=== PATIENT | male | born 1995 | race Caucasian/White ===

== ENCOUNTER 2023-12-24 06:13 | Emergency (ER) | payer OTHER, SELFPAY ==
[2023-12-24] VITALS (7 sets, daily range): BP systolic 92–131; BP diastolic 56–81; BMI 17.8
[2023-12-24 06:42] LABS: % Basophils 0.3 % (0-2); % Eosinophils 3.1 % (0-6); % Immature Granulocytes 0.3 % (0-0.5); % Lymphocytes 36.4 % (20.5-51.1); % Monocytes 6.7 % (1.7-9.3); % Neutrophils 53.2 % (42.2-75.2); Absolute Eosinophils 0.3 10^3/uL (0-0.7); Absolute Lymphocytes 3.8 10^3/uL (1.2-3.4); Absolute Monocytes 0.7 10^3/uL (0.1-0.6); Absolute Neutrophils 5.5 10^3/uL (1.4-6.5); Hematocrit 42.8 % (39.0-52.0); Mean Corp Hgb Conc. 37.4 g/dL (33.0-37.0); Mean Corpuscular Hgb 29.4 pg (27.0-31.0); Mean Corpuscular Volume 78.5 fL (80.0-94.0); Mean Platelet Volume 8.9 fL (7.4-10.4); Nucleated Red Blood Cells % 0 % (-); Platelet Count 364 10^3/uL (130-400); Red Blood Cell Count 5.45 10^6/uL (4.70-6.10); Red Cell Dist. Width 13.3 % (11.5-14.5); White Blood Cell Count 10.3 10^3/uL (4.8-10.8)
[2023-12-24] MEDS: ZOFRAN 4 MG IV (06:53)
[2023-12-24 07:01] LABS: ALT (SGPT) 18 U/L (0-50); AST (SGOT) 24 U/L (17-59); Albumin 5.1 g/dl (3.5-5.0); Alkaline Phosphatase 93 U/L (38-126); Blood Urea Nitrogen 9 mg/dl (9-20); Calcium 10.4 mg/dl (8.4-10.2); Carbon Dioxide 20 mmol/L (22-30); Chloride 101 mmol/L (98-107); Estimated Creatinine Clearance > 125 ml/min; Glucose 178 mg/dl (70-99); Lipase 72 U/L (23-300); Potassium 3.2 mmol/L (3.5-5.1); Sodium 140 mmol/L (135-145); Total Bilirubin 0.8 mg/dl (0.2-1.3); Total Protein 7.1 g/dl (6.3-8.2); eGFR > 60.00
[2023-12-24] MEDS: NSS 1000 IV ×2 (07:03→10:44)
[2023-12-24 07:04] LABS: Troponin I < 0.012 ng/ml
[2023-12-24] MEDS: PROTONIX IV 40 MG IV (07:09)
[2023-12-24] MEDS: MORPHINE SULFATE 4 MG IV (07:10)
--- NOTE | 2023-12-24 07:46 | ED.GENMED ---
History of Present Illness
General
Chief Complaint: Abdominal Symptoms
Source: patient
Exam Limitations: none
Time Seen by Provider: 12/24/23 06:30
Nursing documentation reviewed up to this point in time: agreed with
History of Present Illness
History of Present Illness:
27-year-old male with past medical history of 'chronic nausea' who presents to the emergency department for evaluation of nausea and vomiting, abdominal pain. Patient reports symptoms started early this morning with profuse nausea and vomiting and
they have been persistent since that time. He says that he asked his brother to bring him to the emergency room and while they were driving to the ER patient began to feel significant abdominal pain and tingling in the extremities, lightheadedness
and so they pulled the car over and called EMS to bring him into the hospital. He also reports 'explosive diarrhea' that started this morning. Denies any recent fevers or chills, says that he was in his normal state of health yesterday. He says
he had a similar episode a few months ago for which he was hospitalized but he says no clear etiology identified. He does note that he uses medical marijuana but 'nausea is not related to that'--he says nausea started long before he began using
medical marijuana.
Past History
Past History
ED Past Medical History: None
ED Past Surgical History: None
Social History
Tobacco: Non-smoker
Alcohol: None
Drug: Marijuana
Personal: Single
Living: with family
Employment: Employed
Review of Systems
Review of Systems
All Other Systems: ROS reviewed and negative except as documented in HPI and ROS
Constitutional: Denies fever or chills
Respiratory: Denies cough or trouble breathing
Cardiac: Denies chest pain
ABD/GI: Reports abdominal pain, nausea, vomiting and diarrhea
: Denies flank pain
Musculoskeletal: Denies neck pain or back pain
Neurological: Reports dizzy; Denies headache
Phy Exam
Physical Exam
Physical Exam:
General: Awake, alert, oriented x3; holding emesis bag, dry heaving
Head: Normocephalic, atraumatic
Eyes: Conjunctiva normal, sclera anicteric
Throat: Airway intact, slightly dry mucous membranes
Neck: Trachea midline, supple without meningismus
Lungs: Clear to auscultation bilaterally, no wheezing, rales, rhonchi
Heart: Regular rate and rhythm, no murmurs, gallops, or rubs
Abd: Soft, non distended, tender to palpation left upper and left lower quadrant with no peritoneal signs and no masses
Neuro: No gross deficits
Extremities: No edema in extremities, equal pulses in all extremities
Scores
Heart Failure Risk
Heart Failure Risk Score: Not Applicable
Heart Score for Chest Pain Patients
STEMI patient?: Not applicable
Withdrawal Assessment of Alcohol
Withdrawal Assessment Completed?: Not applicable
Course
Orders/Labs/Results
Orders:
Orders
12/24/23 06:28
Electrocardiogram (*1) Urgent
Reason for Study: Abdominal Pain
12/24/23 06:31
EKG- Treatment ONCE
12/24/23 06:32
Complete Blood Count/With Diff Urgent
Troponin I Urgent
12/24/23 06:33
Comprehensive Metabolic Panel Urgent
Lipase Urgent
12/24/23 06:47
0.9% Sodium Chloride 1000 ml [Nss] 1,000 ml IV BOLUS
Ondansetron Injectable [Zofran] 4 mg IV NOW STA
12/24/23 07:07
CT Abd/pelvis W Iv Cont Urgent
Comment:
Reason For Exam: abd pain, N/V
Morphine Sulfate 4 mg IV NOW STA
Pantoprazole [Protonix IV] 40 mg IV NOW STA
12/24/23 07:55
Potassium Chloride [KCl] 20 meq 0.9% Sodium Chloride 150 ml [Nss] 150 ml IV NOW
12/24/23 08:31
Lorazepam [Ativan] 1 mg IV NOW STA
12/24/23 10:39
0.9% Sodium Chloride 1000 ml [Nss] 1,000 ml IV BOLUS
12/24/23 10:43
0.9% Sodium Chloride 1000 ml [Nss] 1,000 ml IV BOLUS
Abnormal Lab Results
12/24/23 12/24/23
06:32 06:33
MCV 78.5 L fL
(80.0-94.0)
MCHC 37.4 H g/dL
(33.0-37.0)
Absolute Lymphs (auto) 3.8 H 10^3/uL
(1.2-3.4)
Absolute Monos (auto) 0.7 H 10^3/uL
(0.1-0.6)
Potassium 3.2 L mmol/L
(3.5-5.1)
Carbon Dioxide 20 L mmol/L
(22-30)
Creatinine 0.6 L mg/dL
(0.7-1.3)
Glucose 178 H mg/dl
(70-99)
Calcium 10.4 H mg/dl
(8.4-10.2)
Albumin 5.1 H g/dl
(3.5-5.0)
12/24/23 06:32
12/24/23 06:33
Vital Signs
Initial and Last Documented VS:
Initial Vital Signs
Temp
36.3 C
12/24/23 06:19
Last Documented Vital Signs
Temp Pulse Resp BP Pulse Ox
36.3 C 60 13 131/81 100
12/24/23 06:19 12/24/23 08:30 12/24/23 08:30 12/24/23 07:00 12/24/23 08:30
MDM/Problems Addressed
Differential Diagnosis Includes:
Food poisoning, gastritis/gastroenteritis/viral illness, pancreatitis, cholelithiasis/cholecystitis, bowel obstruction less likely with no abdominal surgeries in his past, cannabinoid hyperemesis
MDM/Problems Addressed:
27-year-old male with history of chronic nausea and vomiting presents with acute nausea and vomiting with dry heaving, diarrhea and abdominal pain this morning. Vitals normal. Exam as above. Plan Place an IV check labs including CBC CMP, lipase.
Check EKG for QTc monitoring. Provide fluids, pain control, antiemetic. Check CT abdomen pelvis. Monitor closely reassess after the above.
Lab reviewed: CBC unremarkable, CMP shows hypokalemia, marginal metabolic acidosis likely GI losses. He had a troponin sent in triage which was undetectable. His lipase is normal. CT of the abdomen pelvis shows no acute pathology. He had some
improvement with Zofran, given borderline QTc we treated with Ativan for antiemetic beyond this and after a dose of Ativan his symptoms completely resolved and he says he feels fine. He still has mild tachycardia will provide another liter of fluid
here as he does appear dry but if he remains asymptomatic can likely be discharged. Symptoms could be from food poisoning versus virus; he insists his symptoms are likely not related to marijuana but I suspect that it could be a complicating factor.
Chronic conditions affecting care:
'Chronic nausea and vomiting'
*Radiology
Radiology exam reviewed: radiology read reviewed
*Pulse Oximetry
Patient hypoxic: no
*EKG
Interpreted by ED Provider?: Yes
Heart Rate: 49
Rate: bradycardiac
Rhythm: sinus
[place]: right axis deviation
Interval: long QT (495)
QRS Pattern: wide non-specific
Ischemia: no ischemia
*Critical Care Note
Total Time (30-74mins, 75-104mins- exclusive of procedures): Not Applicable
Data Reviewed
Review of Other/Old Records Reveals: Labs and Records
Source: patient, records and family
ED Attending Note
-
Portions of this chart may have been created with voice recognition software.� Occasional wrong word or��sound alike� substitutions may have occurred due to the inherent limitations of voice recognition software.
Discharge Plan
Departure
Patient with high blood pressure during this ER visit?: No
Discharge Problem:
Nausea, vomiting, and diarrhea, Dehydration, Hypokalemia
Instructions: Diarrhea in teens and adults, Dehydration, Adult (DC), Nausea and Vomiting, Adult (DC)
Prescriptions:
New
ondansetron 4 mg tablet,disintegrating
4 mg PO TIDPRN PRN (Reason: nausea/vomiting) Qty: 20 0RF
No Action
fluoxetine [Prozac] 40 mg Capsule
40 mg PO DAILY
lamotrigine 200 mg Tablet
200 mg PO DAILY
hydroxyzine HCl 25 mg Tablet
25 mg PO PRN PRN (Reason: ANXIETY)
quetiapine [Seroquel] 25 mg Tablet
25 mg PO DAILYPRN PRN (Reason: anxiety)
ondansetron HCl [Zofran] 8 mg Tablet
8 mg PO Q8H PRN (Reason: NAUSEA)
Referrals:
Jorgito Lee DO [Family Provider] - Call in 1-3 days for appt
Activity Restrictions/Additional Instructions:
Thank you for visiting the Emergency Department at [facility].
1. Please schedule a follow up appointment as directed. Call first thing tomorrow morning to make an appointment.
2. If indicated, please take your medications as instructed and indicated on discharge paperwork.
3. If any of your symptoms do not improve, or persist, or become more severe within 6-12 hours, please return to the emergency department for further care.
4. Please return to the emergency department if you develop a headache, neck pain/stiffness, fever greater than 100.4F, chest pain, shortness of breath, persistent nausea, vomiting, slurred speech, difficulty walking, numbness/tingling, weakness,
signs of infection or any other symptoms that are worrisome to you.
Please call [phone] if you have any questions.
Interventions
Interventions:
*Risk Screen - Suicide Last Done: 12/24/23 06:19
*General Assessment Last Done: 12/24/23 06:19
*Neglect/Abuse Screening Last Done: 12/24/23 06:19
ED- Fall Risk Assessment Last Done: 12/24/23 06:19
*ED COVID-19 Vaccine History Last Done: 12/24/23 06:27
YF-Tpqwoz-Dlqebeuqcb Assessment Last Done: 12/24/23 06:19
Discharge Date and Time
Print Language: BRAZILIAN
[2023-12-24] MEDS: KCL 160 MEQ IV (08:20)
[2023-12-24] MEDS: ATIVAN 1 MG IV (08:42)
== END 2023-12-24 11:42 | disposition home or self-care (01) ==
LOC: EMR 06:13
PROVIDERS: EMERGENCY PHYSICIAN Emergency Medicine; FAMILY PHYSICIAN Family Medicine
DX: R19.7 Diarrhea, unspecified (principal); R11.2 Nausea with vomiting, unspecified; R42 Dizziness and giddiness; R10.9 Unspecified abdominal pain; R20.2 Paresthesia of skin; R00.0 Tachycardia, unspecified; E87.6 Hypokalemia; E86.0 Dehydration
CPT/HCPCS: 99285; 96375 ×4; 96361 ×2; 96374; 74177; 80053; 83690; 84484; 85025; 93005; Q9967

== ENCOUNTER 2023-12-26 06:32 | Emergency (ER) | payer OTHER, SELFPAY ==
[2023-12-26 06:33] VITALS: BP 142/86
--- NOTE | 2023-12-26 06:41 | ED.GENMED ---
History of Present Illness
General
Chief Complaint: Abdominal Symptoms
Time Seen by Provider: 12/26/23 06:40
History of Present Illness
History of Present Illness:
HPI: The patient presents with persistent nausea and vomiting over the last 3 hours. I reviewed the notes from 2 days ago when he was here with similar symptoms at that time he also had diarrhea and still has some diarrhea currently. He also
states that he uses medical marijuana but states that his nausea started before using the medical marijuana. He has had nausea and vomiting intermittently for about 10 years.
EXAM:
GENERAL: The patient appears somewhat uncomfortable holding an emesis basin and has been dry heaving
HEENT: Moist oral mucosa
CARDIOVASCULAR: No murmurs, normal heart rate, regular rhythm, No chest wall tenderness
PULMONARY: No respiratory distress, breath sounds are clear and equal
ABDOMEN: Soft with no peritoneal signs, no tenderness
NEUROLOGIC: Excellent strength all extremities, no coordination deficits
PSYCHIATRIC: Appropriate mental status, normal insight and judgement
EXTREMITIES: Nontender, no edema, moves all extremities equally
SKIN: No rash, no lesions
TIME OF INITIAL ENCOUNTER: 6:50 AM
NUMBER AND COMPLEXITY OF PROBLEMS ADDRESSED AT THE ENCOUNTER
� Chronic conditions affecting care: Anxiety, thinks he may have cyclic vomiting syndrome and does not think that he has cannabinoid hyperemesis syndrome
� Acute Exacerbation and/or Progression of Chronic Illness: This is an acute exacerbation of chronic problem
� Differential Diagnosis includes: Viral syndrome, anxiety related diarrhea/IBS, highly doubt anatomic abnormality given the relatively unremarkable CT from the other day.
AMOUNT AND/OR COMPLEXITY OF DATA TO BE REVIEWED AND ANALYZED
� I performed an independent evaluation of and my interpretation is:
EKG: Sinus 63 with marked sinus arrhythmia, QTc [address]:
X-rays:
Laboratory Studies: White count 14.6, hemoglobin normal potassium 3.0, renal function normal, LFTs and lipase unremarkable
Other:
� Review of other/old records: I reviewed the records from the other day in which the CT of the abdomen pelvis showed no acute pathology, at that time he was given Zofran and Ativan (had a slightly prolonged QTc)
� Clinical information was obtained by an independent historian: I spoke to the brother at bedside
� Prescriptions/Medications Considered but not given:
� Further testing considered but not performed:
RISK OF COMPLICATIONS AND/OR MORBIDITY OR MORTALITY OF PATIENT MANAGEMENT
� Social determinants of health affecting care: Lives at home, uses marijuana but states he has had symptoms of nausea and vomiting even before he started using marijuana 2 years ago
� Discussion with other providers:
� Escalation of care including admission/observation vs risk of discharge considered: Will give IV fluids and check labs. His QTc is improved this time (was 495 mL of NS and is currently 454 ms)�therefore will give Zofran.
Since he improved with Ativan last time we will also give a dose of Ativan. Will also try Pepcid and Toradol as he reports a heartburn sensation and has discomfort in the abdominal wall that he relates to the dry heaves/vomiting. Will try to
replace potassium orally. On reassessment at 8:30 AM, the patient is resting comfortably but states that nausea persist�will try Phenergan. Will also give another liter of fluid. On reassessment 10:15 AM, the patient feels significantly improved.
He has Zofran at home.
Past History
Past History
ED Past Medical History: None
ED Past Surgical History: None
Social History
Tobacco: Non-smoker
Alcohol: None
Drug: Marijuana
Personal: Single
Living: with family
Employment: Employed
Phy Exam
Physical Exam
Physical Exam:
See HPI
Course
Orders/Labs/Results
Orders:
Orders
12/26/23 06:44
0.9% Sodium Chloride 1000 ml [Nss] 1,000 ml IV BOLUS
12/26/23 06:45
Electrocardiogram (*1) Urgent
Reason for Study: QTc Monitoring
EKG- Treatment ONCE
12/26/23 06:53
Lorazepam [Ativan] 1 mg IV NOW STA
12/26/23 06:59
Ondansetron Injectable [Zofran] 4 mg IV NOW STA
12/26/23 07:10
Famotidine [Pepcid] 20 mg IV NOW STA
Ketorolac [Toradol] 15 mg IV NOW STA
12/26/23 07:11
Complete Blood Count/With Diff Urgent
Comprehensive Metabolic Panel Urgent
Lipase Urgent
12/26/23 07:49
Potassium Chloride Powder [Klor-Con] 60 meq PO NOW STA
12/26/23 08:29
0.9% Sodium Chloride 1000 ml [Nss] 1,000 ml IV BOLUS
12/26/23 08:36
Promethazine [Phenergan] 25 mg 0.9% Sodium Chloride 50 ml [Nss] 50 ml IV NOW
Abnormal Lab Results
12/26/23
07:11
WBC 14.6 H 10^3/uL
(4.8-10.8)
Abs Immat Gran (auto) 0.1 H 10^3/uL
(0-0.05)
Absolute Neuts (auto) 11.8 H 10^3/uL
(1.4-6.5)
Absolute Monos (auto) 1.0 H 10^3/uL
(0.1-0.6)
Neutrophils % 81.1 H %
(42.2-75.2)
Lymphocytes % 11.3 L %
(20.5-51.1)
Potassium 3.0 L mmol/L
(3.5-5.1)
BUN 8 L mg/dl
(9-20)
Creatinine 0.5 L mg/dL
(0.7-1.3)
Glucose 138 H mg/dl
(70-99)
12/26/23 07:11
12/26/23 07:11
Vital Signs
Initial and Last Documented VS:
Initial Vital Signs
Temp Pulse Resp BP Pulse Ox
98.3 F 66 22 142/86 99
12/26/23 06:33 12/26/23 06:33 12/26/23 06:33 12/26/23 06:33 12/26/23 06:33
Last Documented Vital Signs
Temp Pulse Resp BP Pulse Ox
98.0 F 55 15 116/63 98
12/26/23 08:00 12/26/23 07:15 12/26/23 07:15 12/26/23 07:00 12/26/23 07:15
*Critical Care Note
Total Time (30-74mins, 75-104mins- exclusive of procedures): Not Applicable
ED Attending Note
-
Portions of this chart may have been created with voice recognition software.� Occasional wrong word or��sound alike� substitutions may have occurred due to the inherent limitations of voice recognition software.
Discharge Plan
Departure
Patient Disposition: Home (Routine Discharge)
Date of Disposition: 12/26/23
Time of Disposition: 10:23
Patient with high blood pressure during this ER visit?: Yes
Discharge Problem:
Vomiting
Instructions: Nausea and Vomiting, Adult (DC)
Prescriptions:
No Action
fluoxetine [Prozac] 40 mg Capsule
40 mg PO DAILY
lamotrigine 200 mg Tablet
200 mg PO DAILY
hydroxyzine HCl 25 mg Tablet
25 mg PO PRN PRN (Reason: ANXIETY)
quetiapine [Seroquel] 25 mg Tablet
25 mg PO DAILYPRN PRN (Reason: anxiety)
ondansetron HCl [Zofran] 8 mg Tablet
8 mg PO Q8H PRN (Reason: NAUSEA)
ondansetron 4 mg tablet,disintegrating
4 mg PO TIDPRN PRN (Reason: nausea/vomiting) Qty: 20 0RF
Referrals:
Duc Weston PA-C [Family Provider] -
Activity Restrictions/Additional Instructions:
Your potassium level is low at 3.0 and we replaced this. Your white count is higher than it was the other day but this is very common in the setting of a lot of vomiting. EKG shows a normal QTc.
Interventions
Interventions:
*Risk Screen - Suicide Last Done: 12/26/23 06:33
*General Assessment Last Done: 12/26/23 07:19
*Neglect/Abuse Screening Last Done: 12/26/23 07:19
ED- Fall Risk Assessment Last Done: 12/26/23 06:38
*ED COVID-19 Vaccine History Last Done: 12/26/23 06:38
BL-Igqace-Hxndbzbjxj Assessment Last Done: 12/26/23 07:03
Discharge Date and Time
Print Language: SINHALA
[2023-12-26 07:00] VITALS: BP 116/63
[2023-12-26] MEDS: ATIVAN 1 MG IV (07:06)
[2023-12-26] MEDS: ZOFRAN 4 MG IV (07:08)
[2023-12-26] MEDS: NSS 1000 IV ×2 (07:09→08:37)
[2023-12-26] MEDS: TORADOL 15 MG IV (07:15)
[2023-12-26] MEDS: PEPCID 20 MG IV (07:16)
[2023-12-26 07:26] LABS: % Basophils 0.1 % (0-2); % Eosinophils 0.3 % (0-6); % Immature Granulocytes 0.3 % (0-0.5); % Lymphocytes 11.3 % (20.5-51.1); % Monocytes 6.9 % (1.7-9.3); % Neutrophils 81.1 % (42.2-75.2); Absolute Eosinophils 0.1 10^3/uL (0-0.7); Absolute Immature Granulocytes 0.1 10^3/uL (0-0.05); Absolute Lymphocytes 1.7 10^3/uL (1.2-3.4); Absolute Neutrophils 11.8 10^3/uL (1.4-6.5); Hematocrit 40.6 % (39.0-52.0); Hemoglobin 14.9 g/dL (13.0-18.0); Mean Corp Hgb Conc. 36.7 g/dL (33.0-37.0); Mean Corpuscular Volume 81.9 fL (80.0-94.0); Mean Platelet Volume 8.9 fL (7.4-10.4); Nucleated Red Blood Cells % 0 % (-); Platelet Count 260 10^3/uL (130-400); Red Blood Cell Count 4.96 10^6/uL (4.70-6.10); Red Cell Dist. Width 13.2 % (11.5-14.5); White Blood Cell Count 14.6 10^3/uL (4.8-10.8)
[2023-12-26 07:43] LABS: ALT (SGPT) 18 U/L (0-50); AST (SGOT) 21 U/L (17-59); Albumin 4.5 g/dl (3.5-5.0); Alkaline Phosphatase 76 U/L (38-126); Blood Urea Nitrogen 8 mg/dl (9-20); Calcium 9.7 mg/dl (8.4-10.2); Carbon Dioxide 23 mmol/L (22-30); Chloride 100 mmol/L (98-107); Glucose 138 mg/dl (70-99); Lipase 41 U/L (23-300); Sodium 141 mmol/L (135-145); Total Bilirubin 0.6 mg/dl (0.2-1.3); Total Protein 6.5 g/dl (6.3-8.2); eGFR > 60.00
[2023-12-26] MEDS: KLOR-CON 60 MEQ PO (07:57)
[2023-12-26 08:00] VITALS: BP 106/56
[2023-12-26] MEDS: PHENERGAN 51 MG IV (09:15)
[2023-12-26 10:54] VITALS: BP 106/73
== END 2023-12-26 11:20 | disposition home or self-care (01) ==
LOC: EMR 06:32
PROVIDERS: EMERGENCY PHYSICIAN Emergency Medicine; FAMILY PHYSICIAN Physician Assistant Medical
DX: R11.2 Nausea with vomiting, unspecified (principal); R03.0 Elevated blood-pressure reading, without diagnosis of hypertension
CPT/HCPCS: 99284; 96365; 96375 ×4; 96361; 80053; 83690; 85025; 93005

== ENCOUNTER 2023-12-28 07:11 | Emergency (ER) | payer OTHER, SELFPAY ==
[2023-12-28 07:13] VITALS: BP 146/86
[2023-12-28 07:43] LABS: % Basophils 0.2 % (0-2); % Eosinophils 1.5 % (0-6); % Immature Granulocytes 0.5 % (0-0.5); % Lymphocytes 23.1 % (20.5-51.1); % Monocytes 6.6 % (1.7-9.3); % Neutrophils 68.1 % (42.2-75.2); Absolute Eosinophils 0.2 10^3/uL (0-0.7); Absolute Immature Granulocytes 0.1 10^3/uL (0-0.05); Absolute Lymphocytes 3.1 10^3/uL (1.2-3.4); Absolute Monocytes 0.9 10^3/uL (0.1-0.6); Hematocrit 42.9 % (39.0-52.0); Hemoglobin 15.8 g/dL (13.0-18.0); Mean Corp Hgb Conc. 36.8 g/dL (33.0-37.0); Mean Corpuscular Hgb 29.7 pg (27.0-31.0); Mean Corpuscular Volume 80.6 fL (80.0-94.0); Mean Platelet Volume 9.2 fL (7.4-10.4); Nucleated Red Blood Cells % 0 % (-); Platelet Count 364 10^3/uL (130-400); Red Blood Cell Count 5.32 10^6/uL (4.70-6.10); Red Cell Dist. Width 13.3 % (11.5-14.5); White Blood Cell Count 13.3 10^3/uL (4.8-10.8)
[2023-12-28 07:54] LABS: ALT (SGPT) 18 U/L (0-50); AST (SGOT) 22 U/L (17-59); Albumin 4.9 g/dl (3.5-5.0); Alkaline Phosphatase 83 U/L (38-126); Blood Urea Nitrogen 11 mg/dl (9-20); Calcium 9.8 mg/dl (8.4-10.2); Carbon Dioxide 25 mmol/L (22-30); Chloride 103 mmol/L (98-107); Glucose 136 mg/dl (70-99); Potassium 3.6 mmol/L (3.5-5.1); Sodium 146 mmol/L (135-145); Total Bilirubin 0.6 mg/dl (0.2-1.3); eGFR > 60.00
[2023-12-28] MEDS: BENADRYL 25 MG IV (09:30)
[2023-12-28] MEDS: TORADOL 15 MG IV (09:31)
[2023-12-28] MEDS: COMPAZINE 10 MG IV (09:31)
--- NOTE | 2023-12-28 09:57 | ED.GENMED ---
History of Present Illness
General
Chief Complaint: Abdominal Symptoms
Source: patient and family
Time Seen by Provider: 12/28/23 08:55
History of Present Illness
History of Present Illness:
27-year-old male who presents with persistent nausea vomiting has been ongoing he states for 10 years. He does admit that for last 2 weeks it has been worse. He has seen specialist in the past that he has to get a gastric emptying study performed.
Patient does smoke marijuana but states he was vomiting daily prior to this. He denies hematochezia or melena. No real pain but states he feels like his muscles are tight on his abdomen. Denies hematochezia or melena. No hematemesis. He states
that Ativan and Zofran sometimes do help but he tried Zofran at home without any improvement. He has been given Haldol in the past as well without improvement
Past History
Past History
ED Past Medical History: Other (Cyclic vomiting, anxiety, depression, daily marijuana)
ED Past Surgical History: None
Social History
Tobacco: Non-smoker
Alcohol: None
Drug: Marijuana
Personal: Single
Living: with family
Employment: Employed
Phy Exam
Physical Exam
Physical Exam:
CONSTITUTIONAL Patient alert and oriented to person, place and time. Well-appearing. Vital signs reviewed. pt smiling and laughing during hx taking
HEAD atraumatic, normocephalic.
EYES eyelids normal to inspection, Pupils equally round and reactive to light, Extraocular muscles intact, Conjunctiva normal, Sclera normal.
NECK normal range of motion, Trachea midline, no jugular venous distention.
RESPIRATORY CHEST No respiratory distress noted, Chest expansion equal, Bilateral breath sounds clear.
CARDIOVASCULAR regular rate and rhythm, Heart sounds normal.
ABDOMEN abdomen nontender, Bowel sounds normal. No distention.
BACK normal inspection, no obvious deformities
UPPER EXTREMITY range of motion normal, Motor strength normal, no cyanosis, no edema.
LOWER EXTREMITY range of motion normal, Motor strength normal, no cyanosis, no edema.
NEURO Speech normal, No focal motor deficits, [place] coma scale 15, Memory normal, Cranial Nerves intact to screening exam.
SKIN skin warm, dry, and normal in color.
PSYCHIATRIC patient oriented to person place and time, Normal affect.
Course
Orders/Labs/Results
Orders:
Orders
12/28/23 07:30
Complete Blood Count/With Diff Urgent
Comprehensive Metabolic Panel Urgent
12/28/23 09:19
Diphenhydramine [Benadryl] 25 mg IV NOW STA
Ketorolac [Toradol] 15 mg IV NOW STA
Prochlorperazine [Compazine] 10 mg IV NOW STA
Abnormal Lab Results
12/28/23
07:30
WBC 13.3 H 10^3/uL
(4.8-10.8)
Abs Immat Gran (auto) 0.1 H 10^3/uL
(0-0.05)
Absolute Neuts (auto) 9.0 H 10^3/uL
(1.4-6.5)
Absolute Monos (auto) 0.9 H 10^3/uL
(0.1-0.6)
Sodium 146 H mmol/L
(135-145)
Glucose 136 H mg/dl
(70-99)
12/28/23 07:30
12/28/23 07:30
Vital Signs
Initial and Last Documented VS:
Initial Vital Signs
Temp Pulse Resp BP Pulse Ox
98.2 F 61 18 146/86 98
12/28/23 07:13 12/28/23 07:13 12/28/23 07:13 12/28/23 07:13 12/28/23 07:13
Last Documented Vital Signs
Temp Pulse Resp BP Pulse Ox
98.2 F 61 18 146/86 98
12/28/23 07:13 12/28/23 07:13 12/28/23 07:13 12/28/23 07:13 12/28/23 07:13
MDM/Problems Addressed
MDM/Problems Addressed:
Cyclic vomiting syndrome
*Pulse Oximetry
Patient hypoxic: no
*Critical Care Note
Total Time (30-74mins, 75-104mins- exclusive of procedures): Not Applicable
Data Reviewed
Source: patient and family
Further Testing Considered But Not Given:
Consider CT of the abdomen patient has had imaging and his bili is benign
Patient Management
Escalation/DeEscalation of care consider admission/obs:
Patient resting comfortably. No further vomiting. Sleeping. Okay for discharge and outpatient follow-up with GI. I did encourage him to stop smoking marijuana
ED Attending Note
-
Portions of this chart may have been created with voice recognition software.� Occasional wrong word or��sound alike� substitutions may have occurred due to the inherent limitations of voice recognition software.
Discharge Plan
Departure
Patient Disposition: Home (Routine Discharge)
Date of Disposition: 12/28/23
Time of Disposition: 11:35
Patient with high blood pressure during this ER visit?: No
Discharge Problem:
Vomiting
Instructions: Clear Liquid Diet, Nausea and Vomiting, Adult (DC)
Prescriptions:
New
prochlorperazine maleate [Compazine] 10 mg tablet
10 mg PO TID PRN (Reason: nausea and vomiting) Qty: 20 0RF
No Action
fluoxetine [Prozac] 40 mg Capsule
40 mg PO DAILY
lamotrigine 200 mg Tablet
200 mg PO DAILY
hydroxyzine HCl 25 mg Tablet
25 mg PO PRN PRN (Reason: ANXIETY)
quetiapine [Seroquel] 25 mg Tablet
25 mg PO DAILYPRN PRN (Reason: anxiety)
ondansetron HCl [Zofran] 8 mg Tablet
8 mg PO Q8H PRN (Reason: NAUSEA)
ondansetron 4 mg tablet,disintegrating
4 mg PO TIDPRN PRN (Reason: nausea/vomiting) Qty: 20 0RF
Referrals:
Duc Weston PA-C [Family Provider] -
Activity Restrictions/Additional Instructions:
Please follow-up with your doctor next 2 to 3 days. Please consider stopping smoking marijuana. Please also return immediately for any vomiting blood, worsening abdominal pain, fevers or any other concerns.
Interventions
Interventions:
*Risk Screen - Suicide Last Done: 12/28/23 07:15
*General Assessment Last Done: 12/28/23 07:33
*Neglect/Abuse Screening Last Done: 12/28/23 07:15
ED- Fall Risk Assessment Last Done: 12/28/23 07:33
*ED COVID-19 Vaccine History Last Done: 12/28/23 07:33
DE-Cgkxri-Rzszemyaoy Assessment Last Done: 12/28/23 07:33
Discharge Date and Time
Print Language: POLISH
== END 2023-12-28 12:09 | disposition home or self-care (01) ==
LOC: EMR 07:11
PROVIDERS: Student in an Organized Health Care Education/Training Program; EMERGENCY PHYSICIAN Emergency Medicine; FAMILY PHYSICIAN Physician Assistant Medical
DX: R11.2 Nausea with vomiting, unspecified (principal); F12.90 Cannabis use, unspecified, uncomplicated; F41.8 Other specified anxiety disorders
CPT/HCPCS: 99283; 96374; 96375; 80053; 85025

== ENCOUNTER 2025-04-03 03:54 | Emergency (ER) | payer OTHER, SELFPAY ==
[2025-04-03 03:55] VITALS: BP 122/88
--- NOTE | 2025-04-03 04:02 | ED.GENMED ---
History of Present Illness
General
Chief Complaint: Abdominal Symptoms
Source: patient and ambulance crew
Exam Limitations: none
Time Seen by Provider: 04/03/25 03:58
Nursing documentation reviewed up to this point in time: agreed with
History of Present Illness
History of Present Illness:
Note:
CHIEF COMPLAINT(S)
Recurrent episodes of vomiting.
HISTORY OF PRESENT ILLNESS
The patient is a 29-year-old male presenting with episodes of vomiting, occurring throughout the day without prior similar episodes. The patient reports daily use of marijuana primarily for anxiety, but denies correlation of previous vomiting
episodes with marijuana use. Vomiting began earlier today after experiencing significant stress due to unspecified personal issues. The patient denies fever or any other symptoms concurrent with vomiting.
CHRONIC MEDICAL CONDITIONS SIGNIFICANTLY AFFECTING CARE
Anxiety, for which the patient uses marijuana daily.
SOCIAL HISTORY
The patient reported daily use of marijuana specifically for managing anxiety symptoms.
REVIEW OF SYSTEMS
- Gastrointestinal: Vomiting noted, no prior similar episodes reported.
- Neurological: No fever or other symptoms reported.
PHYSICAL EXAM
General: Alert, no acute distress.
Skin: Warm, dry.
Head: Normocephalic, atraumatic.
Neck: Supple, trachea midline.
Eye Ears, Nose, Mouth and Throat: Oral mucosa moist.
Cardiovascular: Normal peripheral perfusion, No edema.
Respiratory: Respirations are non-labored.
Gastrointestinal: Abdomen nondistended, abd soft,nontender
Back: Normal range of motion, Normal alignment.
Musculoskeletal: Normal range of motion, normal strength.
Neurological: Alert and oriented to person, place, time, and situation, No focal neurological deficit observed.
Psychiatric: Cooperative, appropriate mood and affect.
PLAN
- Initiation of intravenous access.
- Electrocardiogram (EKG) to assess cardiac function.
- Blood tests to evaluate overall health and possible causes of vomiting.
- Administration of medication to alleviate nausea and vomiting.
DIFFERENTIAL DIAGNOSIS
The Differential Diagnosis includes, in no particular order and is not limited to:
1. Cannabinoid Hyperemesis Syndrome
2. Gastroenteritis
3. Anxiety-induced vomiting
4. Gastroparesis
5. Peptic Ulcer Disease
6. Acute Gastritis
7. Substance-induced vomiting
8. Gastroesophageal Reflux Disease (GERD)
9. Biliary Colic
10. Pancreatitis
EKG
My independent EKG interpretation is:
- Time of EK:27 AM
- Rhythm: Sinus rhythm
- Abnormality: Right bundle branch block
- QT Interval: QTc 473 ms
Disposition:
SUMMARY OF ENCOUNTER
The patient is a 29-year-old male who presented to the emergency department with recurrent episodes of vomiting. He reports vomiting throughout the day triggered by significant stress. The patient had no history of similar episodes previously.
Physical examination findings were unremarkable except for vomiting episodes. Vomiting is not suspected to be related to appendicitis, diverticulitis, or obstruction. Management included initiation of IV access for rehydration and administration of
antiemetic medication. The patient was found stable and deemed safe for outpatient management.
DISPOSITION
Discharge
ASSESSMENT
The assessment is recurrent vomiting likely related to anxiety-induced mechanisms and possibly exacerbated by chronic marijuana use.
EMERGENCY TREATMENTS ADMINISTERED
Intravenous fluids for rehydration.
PLAN
Continue outpatient management. Administer prophylactic antiemetics.
PATIENT EDUCATION AND COUNSELING
Educate the patient regarding possible causes of vomiting and stress management strategies. Discuss the potential impacts of chronic marijuana use on health.
FOLLOW-UP INSTRUCTIONS
Advised to follow up with a primary care provider or a specialist if symptoms persist or worsen.
MEDICATION RECONCILIATION
Prescribed ondansetron for nausea and vomiting. Prescribed sucralfate for gastrointestinal protection.
MEDICAL DECISION MAKING
- Complexity of Data Reviewed: Chronic conditions affecting care: Anxiety
Differential Diagnoses:
1. Cannabinoid Hyperemesis Syndrome
2. Gastroenteritis
3. Anxiety-induced vomiting
4. Gastroparesis
5. Peptic Ulcer Disease
6. Acute Gastritis
7. Substance-induced vomiting
8. Gastroesophageal Reflux Disease (GERD)
9. Biliary Colic
10. Pancreatitis
- Data:
Category 1
My independent interpretation of the EKG shows sinus rhythm with a right bundle branch block and QTc interval of 473 ms.
- Risk:
Prescription medication was prescribed; patient was prescribed ondansetron and sucralfate.
DIAGNOSIS
1. R11.10 - Nausea and vomiting, unspecified
Past History
Past History
ED Past Medical History: Other (Cyclic vomiting, anxiety, depression, daily marijuana)
ED Past Surgical History: None
Social History
Tobacco: Non-smoker
Alcohol: None
Drug: Marijuana
Personal: Single
Living: with family
Employment: Employed
Phy Exam
Physical Exam
Physical Exam:
.
Course
Orders/Labs/Results
Orders:
Orders
04/03/25 03:58
IV Insert/Care/Rem.- Treatment PRN
0.9% Sodium Chloride 1000 ml [Nss] 1,000 ml IV BOLUS
04/03/25 04:01
EKG- Treatment ONCE
Haloperidol Lactate [Haldol] 1 mg IV NOW STA
04/03/25 04:02
Electrocardiogram (*1) Urgent
Reason for Study: QTc Monitoring
04/03/25 04:11
COVID-19 Antigen Urgent
Source: Nasal Swab
Complete Blood Count/With Diff Urgent
Comprehensive Metabolic Panel Urgent
Lipase Urgent
Magnesium Urgent
Influenza A+B Rapid Molecular Urgent
AMOR Source: Nasal Swab
Specimen Description:
04/03/25 04:48
Trimethobenzamide [Tigan] 200 mg IM NOW STA
04/03/25 05:04
Potassium Chloride 10% Elixir [KCl Elixir] 40 meq PO NOW STA
04/03/25 05:32
Capsaicin [Zostrix-Hp 0.075% Cream] See Dose Instructions TOPICAL STAT STA
Abnormal Lab Results
04/03/25
04:11
WBC 18.0 H 10^3/uL
(4.8-10.8)
MCV 78.9 L fL
(80.0-94.0)
MCHC 37.5 H g/dL
(33.0-37.0)
Abs Immat Gran (auto) 0.1 H 10^3/uL
(0-0.05)
Absolute Neuts (auto) 14.1 H 10^3/uL
(1.4-6.5)
Absolute Monos (auto) 1.1 H 10^3/uL
(0.1-0.6)
Immature Gran % 0.6 H %
(0-0.5)
Neutrophils % 78.2 H %
(42.2-75.2)
Lymphocytes % 13.9 L %
(20.5-51.1)
Potassium 3.3 L mmol/L
(3.5-5.1)
Carbon Dioxide 18 L mmol/L
(22-30)
Creatinine 0.5 L mg/dL
(0.7-1.3)
Glucose 145 H mg/dl
(70-99)
04/03/25 04:11
04/03/25 04:11
Vital Signs
Initial and Last Documented VS:
Initial Vital Signs
Temp Pulse Resp BP Pulse Ox
97.4 F 81 16 122/88 100
04/03/25 03:55 04/03/25 03:55 04/03/25 03:55 04/03/25 03:55 04/03/25 03:55
Last Documented Vital Signs
Temp Pulse Resp BP Pulse Ox
97.4 F 81 16 122/88 100
04/03/25 04:33 04/03/25 04:33 04/03/25 04:33 04/03/25 04:33 04/03/25 04:33
*Pulse Oximetry
Patient hypoxic: no
*Critical Care Note
Total Time (30-74mins, 75-104mins- exclusive of procedures): Not Applicable
ED Attending Note
-
Portions of this chart may have been created with voice recognition software.� Occasional wrong word or��sound alike� substitutions may have occurred due to the inherent limitations of voice recognition software.
Discharge Plan
Departure
Patient Disposition: Home (Routine Discharge)
Date of Disposition: 04/03/25
Time of Disposition: 05:58
Patient with high blood pressure during this ER visit?: Yes
Condition: Good
Discharge Problem:
Nausea and vomiting
Instructions: Nausea and Vomiting, Adult (DC), BLOOD PRESSURE
Prescriptions:
New
sucralfate 100 mg/mL suspension
10 ml PO BID Qty: 1000 0RF
ondansetron 4 mg tablet,disintegrating
4 mg PO DAILY PRN (Reason: nausea and vomiting) 4 Days Qty: 7 0RF
No Action
fluoxetine [Prozac] 40 mg Capsule
40 mg PO DAILY
lamotrigine 200 mg Tablet
200 mg PO DAILY
hydroxyzine HCl 25 mg Tablet
25 mg PO PRN PRN (Reason: ANXIETY)
quetiapine [Seroquel] 25 mg Tablet
25 mg PO DAILYPRN PRN (Reason: anxiety)
ondansetron HCl [Zofran] 8 mg Tablet
8 mg PO Q8H PRN (Reason: NAUSEA)
ondansetron 4 mg tablet,disintegrating
4 mg PO TIDPRN PRN (Reason: nausea/vomiting) Qty: 20 0RF
prochlorperazine maleate [Compazine] 10 mg tablet
10 mg PO TID PRN (Reason: nausea and vomiting) Qty: 20 0RF
Referrals:
Hemple,Duc, PA-C [Family Provider, Family Practice] - Call in 1-3 days for appt
Interventions
Interventions:
*General Assessment Last Done: 04/03/25 03:55
*Neglect/Abuse Screening Last Done: 04/03/25 03:55
*ED COVID-19 Vaccine History Last Done: 04/03/25 03:55
*ED Influenza Vaccine History Last Done: 04/03/25 03:55
[facility] Fall Risk Assessment Tool Last Done: 04/03/25 04:22
*Risk Screen - Suicide (C-SSRS) Last Done: 04/03/25 03:55
SX-Aacqrb-Rovoamhucv Assessment Last Done: 04/03/25 04:23
Discharge Date and Time
Print Language: LITHUANIAN
[2025-04-03 04:22] VITALS: BMI 18.0
[2025-04-03 04:27] LABS: Hematocrit 40.5 % (39.0-52.0); Hemoglobin 15.2 g/dL (13.0-18.0); Mean Corp Hgb Conc. 37.5 g/dL (33.0-37.0); Mean Corpuscular Volume 78.9 fL (80.0-94.0); Nucleated Red Blood Cells % 0 % (-); Platelet Count 292 10^3/uL (130-400); Red Cell Dist. Width 12.7 % (11.5-14.5)
[2025-04-03] MEDS: NSS 1000 IV (04:28)
[2025-04-03] MEDS: HALDOL 1 MG IV (04:28)
[2025-04-03 04:33] VITALS: BP 122/88
[2025-04-03 04:40] LABS: COVID-19 Antigen Negative (Negative)
[2025-04-03] MEDS: TIGAN 200 MG IM ×2 (04:50→06:13)
[2025-04-03 04:57] LABS: ALT (SGPT) 19 U/L (0-50); AST (SGOT) 26 U/L (17-59); Albumin 4.6 g/dl (3.5-5.0); Alkaline Phosphatase 108 U/L (38-126); Blood Urea Nitrogen 13 mg/dl (9-20); Calcium 9.8 mg/dl (8.4-10.2); Carbon Dioxide 18 mmol/L (22-30); Chloride 102 mmol/L (98-107); Estimated Creatinine Clearance > 125 ml/min; Glucose 145 mg/dl (70-99); Lipase 182 U/L (23-300); Magnesium 2.0 mg/dl (1.6-2.3); Potassium 3.3 mmol/L (3.5-5.1); Sodium 135 mmol/L (135-145); Total Protein 7.2 g/dl (6.3-8.2); eGFR > 60.00
[2025-04-03] MEDS: KCL ELIXIR 40 MEQ PO (05:34)
[2025-04-03] MEDS: ZOSTRIX-HP 0.075% CREAM 1 APPLIC TOPICAL (06:13)
[2025-04-03 07:22] VITALS: BP 118/78
== END 2025-04-03 07:24 | disposition home or self-care (01) ==
LOC: EMR 03:54
PROVIDERS: EMERGENCY PHYSICIAN Emergency Medicine; FAMILY PHYSICIAN Physician Assistant Medical
DX: R11.2 Nausea with vomiting, unspecified (principal); F41.9 Anxiety disorder, unspecified; F12.90 Cannabis use, unspecified, uncomplicated; I45.10 Unspecified right bundle-branch block; Z11.52 Encounter for screening for COVID-19
CPT/HCPCS: 96374; 96372; 96361; 99284; 80053; 83690; 83735; 85025; 87502; 87811; 93005